=== PATIENT | male | born 1960 | race Caucasian/White ===

== ENCOUNTER 2018-04-17 10:58 | Emergency (ER) | payer SELFPAY ==
--- NOTE | 2018-04-17 11:51 | C.PDOC ---
History Of Present Illness 58yo male, no past medical history, comes to ER reporting left upper back and left sided neck pain x 5 days. Patient states the pain has worsened since yesterday and he is unable to sleep. Patient has been taking Motrin and Advil with minimal relief of symptoms. Otherwise, he denies any trauma or injury to the site, heavy lifting, repetitive movements, numbness or weakness. He denies any headache, or nausea as well. He offers no additional medical complaints. PMD: Dr. Elisa Corbin Time Seen by Provider: 04/17/18 11:15 Chief Complaint (Nursing): Headache History Per: Patient History/Exam Limitations: no limitations Onset/Duration Of Symptoms: Days Quality Of Discomfort: "Pain" Additional History Per: Patient Past Medical History Reviewed: Historical Data, Nursing Documentation, Vital Signs Vital Signs: Last Vital Signs Temp 97.6 F 04/17/18 11:00 Pulse 100 H 04/17/18 11:00 Resp 20 04/17/18 11:00 BP 159/84 H 04/17/18 11:00 Pulse Ox 98 04/17/18 12:01 - Medical History PMH: No Chronic Diseases Surgical History: No Surg Hx Family History: States: No Known Family Hx - Social History Hx Alcohol Use: No Hx Substance Use: No Review Of Systems Except As Marked, All Systems Reviewed And Found Negative. Constitutional: Negative for: Fever, Chills Gastrointestinal: Negative for: Nausea, Vomiting Musculoskeletal: Positive for: Neck Pain, Back Pain Neurological: Negative for: Weakness, Numbness, Headache, Dizziness Physical Exam - Physical Exam Appears: Well, Non-toxic, No Acute Distress Skin: Normal Color, Warm, No Rash, No Ecchymosis Head: Atraumatic, Normacephalic, No Swelling Eye(s): bilateral: PERRL Ear(s): Bilateral: Normal Nose: No Flaring, No Discharge Oral Mucosa: Moist, No Drooling Tongue: No Swelling, No Lesions Lips: No Swelling, No Lesions Neck: Normal ROM, Trachea Midline, No Midline Cervical Tenderness, No Step Off Deformity, Supple, Other (diffuse left sided posterior cervical tenderness from occipital area extend down to left upper back with mild edema and palpable muscle spasm.) Chest: Symmetrical Cardiovascular: Rhythm Regular, No Murmur, No JVD Respiratory: No Decreased Breath Sounds, No Accessory Muscle Use, No Stridor, No Wheezing Gastrointestinal/Abdominal: Soft, No Tenderness, No Distention, No Guarding Back: No CVA Tenderness, No Vertebral Tenderness, Paraspinal Tenderness Extremity: Normal ROM, No Tenderness, No Swelling Extremity: Bilateral: Atraumatic Neurological/Psych: Oriented x3, Normal Speech, Normal Cognition, Normal Motor, Normal Sensation, Normal Reflexes ED Course And Treatment O2 Sat by Pulse Oximetry: 98 (RA) Pulse Ox Interpretation: Normal - Other Rad C-spine X-Ray: Interpreted by Me, Viewed By Me Interpretation: (-) acute fx or sublux Progress Note: XR C-Spine ordered, patient given Neurontin 300mg PO and Prednisone 60mg PO. On re-eval, pt is afebrile, hemodynamicaly stable. Non- toxic. PulseOx 98% RA. ENT: No acute findings. neck: SUpple, (-) midline tenderness, (-) JVD, (-) carotid bruits B/L. Lungs: CTA B/L, BS equal B/L. CVS : (+)S1S2, reg. Neurologicaly intact. Pt has clinical findings c/w Left sided cervical muscle strain r/o early shingles. Pt advised. ref. to f/u with PMD in 2-3 days for re-eval. return to ED if any worsening or new changes. Disposition Counseled Patient/Family Regarding: Studies Performed, Diagnosis, Need For Followup, Rx Given - Disposition Referrals: Elizabeth Corbin MD [Staff Provider] - Disposition: HOME/ ROUTINE Disposition Time: 12:02 Condition: STABLE Additional Instructions: Check you sleeping position/pillow take pain medication as prescribed Observe if any new rash appears to scalp area Follow up with PMD in 1-2 days for re-evaluation. return to ED if any worsening or new changes. Prescriptions: Gabapentin [Neurontin] 300 mg PO HS #10 cap Methocarbamol [Robaxin] 500 mg PO TID #14 tab Prednisone [Deltasone] 40 mg PO DAILY #6 tablet Instructions: Cervical Muscle Strain Forms: [facility] ([employer]) - Clinical Impression Clinical Impression: Cervical strain - PA / MANUFACTURER / Resident Statement MD/DO has reviewed & agrees with the documentation as recorded. - Scribe Statement The provider has reviewed the documentation as recorded by the Jocelin Delgado Provider Attestation: All medical record entries made by the Scribe were at my direction and personally dictated by me. I have reviewed the chart and agree that the record accurately reflects my personal performance of the history, physical exam, medical decision making, and the department course for this patient. I have also personally directed, reviewed, and agree with the discharge instructions and disposition.
[2018-04-17 12:21] VITALS: BP 144/82; PULSE 77; RESP 16; TEMP 98.1; O2SAT 99
--- NOTE | 2018-04-17 13:06 | RAD ---
Date of service: 04/17/2018 PROCEDURE: Cervical Spine Radiographs. HISTORY: Pain. COMPARISON: None. FINDINGS: BONES: Alignment maintained. No fracture. Dens Intact. DISC SPACES: Multilevel disc space narrowing. SOFT TISSUES: Normal. No prevertebral soft tissue swelling. OTHER FINDINGS: None. IMPRESSION: No acute fracture. Multilevel degenerative changes.
== END 2018-04-17 12:23 | disposition home or self-care (01) ==
LOC: C.ER 10:58
DX: S16.1XXA Strain of muscle, fascia and tendon at neck level, initial encounter (principal); X58.XXXA Exposure to other specified factors, initial encounter; Y92.9 Unspecified place or not applicable